=== PATIENT | male | born 1980 | race Caucasian/White ===

== ENCOUNTER 2024-06-20 17:35 | Inpatient (IN) | payer MEDICARE, OTHER ==
[2024-06-20] MEDS ORDERED: VANCOMYCIN 1,000 MG in DEXTROSE 5%-WATER - 250 ML IVPB ONE (18:17)
[2024-06-20 19:18] LABS: VENOUS BASE EXCESS 3.6 mmol/L (-2-2); VENOUS O2 SATURATION 88.6 % (70-80); VENOUS PCO2 52.6 mmHg (38-52); VENOUS PH 7.37 (7.310-7.410)
[2024-06-20 19:20] LABS: BASO % 0.1 % (0-2.0); HEMATOCRIT 27.3 % (35.4-49); HEMOGLOBIN 8.9 GM/dL (11.7-16.9); LYMPH % 1.8 % (8-40); MCH 28.8 pg (25.7-33.7); MCHC 32.7 g/dl (32.0-35.9); MEAN CELL VOLUME 87.9 fl (80-96); MEAN PLT VOLUME 6.4 fl (7.5-11.1); MONO % 4.5 % (3.8-10.2); NEUT % 93.6 % (42.8-82.8); PLATELET COUNT 338 10^3/uL (134-434); RBC 3.11 M/mm3 (4.00-5.60); RDW 15.3 % (11.9-15.9); WHITE BLOOD COUNT 14.6 K/mm3 (4.0-10.0)
[2024-06-20] MEDS ORDERED: ACETAMINOPHEN INJECTION 100 ML ONE (19:25)
[2024-06-20] MEDS ORDERED: PIPERACILLIN/TAZOB 3.375 GM 3.375 GM/50 ML BAG IVPB ONE (19:25)
[2024-06-20 19:28] LABS: INR 1.31 (0.83-1.09); PROTHROMBIN TIME (PATIENT) 14.3 SEC (9.7-13.0)
[2024-06-20 19:31] LABS: ACTIVATED PTT 31.6 SECONDS (25.2-36.5)
[2024-06-20] MEDS: SODIUM CHLORIDE 0.9% 500 ML INFUS.BAG IV ONE ×2 (19:35→22:04)
[2024-06-20] MEDS: PIPERACILLIN/TAZOB 3.375 GM 3.375 GM in DEXTROSE 5%-WATER - 50 ML IVPB ONE (19:35)
[2024-06-20] MEDS: ACETAMINOPHEN 1000 MG/100 ML BAG IVPB ONE (19:35)
[2024-06-20 19:46] LABS: CALCIUM 9.1 mg/dL (8.5-10.1)
[2024-06-20 19:47] LABS: ALBUMIN 2.9 g/dl (3.4-5.0); ANISOCYTOSIS 1+; BLOOD UREA NITROGEN 21.4 mg/dL (7-18); MACROCYTOSIS 0
[2024-06-20 19:50] LABS: CREATININE 0.5 mg/dL (0.55-1.3)
[2024-06-20 19:51] LABS: BILIRUBIN,TOTAL 0.2 mg/dL (0.2-1); TOT PROT 8.5 g/dl (6.4-8.2)
[2024-06-20] MEDS ORDERED: AZITHROMYCIN IVPB 500 MG/250 ML BAG IVPB ONE (19:53)
[2024-06-20] MEDS: AZITHROMYCIN IVPB 500 MG in DEXTROSE 5%-WATER - 250 ML IVPB ONE (20:13)
[2024-06-20] MEDS ORDERED: VANCOMYCIN 1 GM PREMIX (F) 1 GM/200 ML BAG ONE (21:27)
[2024-06-20] MEDS: VANCOMYCIN 1 GM PREMIX (F) 1 GM/200 ML BAG IVPB ONE (21:56)
[2024-06-20 22:10] LABS: EPI CELLS >36 /uL (0-25.1); HYALINE CASTS 13 /uL (0-3.1); PH,URINE 7.5 (5.0-8.0); URINE APPEARANCE TURBID; URINE BACTERIA >9,000 /uL (0-1359); URINE BILIRUBIN NEGATIVE (NEGATIVE); URINE COLOR YELLOW; URINE GLUCOSE (UA) NEGATIVE (NEGATIVE); URINE KETONE NEGATIVE (NEGATIVE); URINE LEUK ESTERASE 1+ (NEGATIVE); URINE NITRITE POSITIVE (NEGATIVE); URINE PROTEIN 2+ (NEGATIVE); URINE RBC 246 /uL (0-23.9); URINE UROBILINOGEN 0.2 mg/dL (0.2-1.0); URINE WBC 21 /uL (0-25.8)
[2024-06-20] MEDS ORDERED: MORPHINE SULFATE 2 MG/ML SYRINGE ONE (23:03)
[2024-06-20] MEDS: morphine SULFATE 4 MG/ML VIAL IVPUSH ONE (23:07)
[2024-06-21] MEDS ORDERED: MORPHINE SULFATE 2 MG/ML SYRINGE ONE (00:21)
[2024-06-21] MEDS: MORPHINE SULFATE 2 MG/ML SYRINGE IVPUSH ONE (00:28)
[2024-06-21] MEDS: LACTATED RINGERS SOLUTION 1,000 ML/1,000 ML INFUS.BAG IV SCH (03:51)
[2024-06-21] MEDS: oxyCODONE HCL 5 MG TABLET GT SCH (04:36)
[2024-06-21] MEDS: levETIRAcetam 500 MG/5 ML INJECTION VIAL IVPB ONE (04:36)
[2024-06-21] MEDS ORDERED: LEVOTHYROXINE 112 MCG, LEVOTHYROXINE 25 MCG NR SCH (07:00)
[2024-06-21] MEDS ORDERED: PIPERACILLIN/TAZOB 4.5 GM 4.5 GM/100 ML BAG IVPB ONE (07:43)
[2024-06-21] MEDS: PIPERACILLIN/TAZOB 4.5 GM 4.5 GM/100 ML BAG IVPB SCH (08:13)
[2024-06-21] MEDS ORDERED: amLODIPine BESYLATE 10 MG TABLET (FP) GT SCH (10:00)
[2024-06-21] MEDS ORDERED: FERROUS SO4 300 MG/5 ML ORAL SOLN UNIT DOSE CUPS GT SCH (10:00)
[2024-06-21] MEDS ORDERED: ASCORBIC ACID 500 MG TABLET (FP) GT SCH (10:00)
[2024-06-21] MEDS ORDERED: FOLIC ACID 1 MG TABLET (FP) GT SCH (10:00)
[2024-06-21] MEDS ORDERED: MAGNESIUM OXIDE 400 MG TABLET (FP) GT SCH (10:00)
[2024-06-21] MEDS ORDERED: AMINO ACIDS/PROTEIN HYDROLYS 30 ML LIQUID.PKT GT SCH (10:00)
[2024-06-21] MEDS ORDERED: ZINC SULFATE 220 MG CAPSULE (FP) GT SCH (10:00)
[2024-06-21] MEDS ORDERED: MELATONIN 1 MG TABLET GT SCH ×2 (10:00→22:00)
[2024-06-21] MEDS ORDERED: ASPIRIN 81 MG CHEWABLE TABLETS ONE (10:28)
[2024-06-21] MEDS ORDERED: levETIRAcetam 500 MG/5 ML INJECTION VIAL IVPB ONE (10:28)
[2024-06-21] MEDS ORDERED: ENOXAPARIN NA (PORCINE) 40 MG/0.4 ML DISP.SYRIN SQ ONE (10:46)
[2024-06-21 10:52] LABS: HEMATOCRIT 21.8 % (35.4-49); HEMOGLOBIN 7.1 GM/dL (11.7-16.9); MCH 29.1 pg (25.7-33.7); MCHC 32.5 g/dl (32.0-35.9); MEAN CELL VOLUME 89.6 fl (80-96); MEAN PLT VOLUME 6.8 fl (7.5-11.1); PLATELET COUNT 301 10^3/uL (134-434); RBC 2.43 M/mm3 (4.00-5.60); RDW 15.4 % (11.9-15.9); WHITE BLOOD COUNT 8.8 K/mm3 (4.0-10.0)
[2024-06-21] MEDS: ASPIRIN 81 MG CHEWABLE TABLETS GT SCH (11:05)
[2024-06-21] MEDS: ENOXAPARIN NA (PORCINE) 40 MG/0.4 ML DISP.SYRIN SQ SCH (11:05)
[2024-06-21] MEDS: levETIRAcetam 500 MG/5 ML INJECTION VIAL IVPB SCH (11:05)
[2024-06-21 11:31] LABS: BLOOD UREA NITROGEN 15.1 mg/dL (7-18); CALCIUM 8.8 mg/dL (8.5-10.1)
[2024-06-21 11:33] LABS: ALBUMIN 2.3 g/dl (3.4-5.0)
[2024-06-21] MEDS ORDERED: ACETAMINOPHEN 1000 MG/100 ML BAG IVPB PRN (11:33)
[2024-06-21 11:34] LABS: CREATININE 0.3 mg/dL (0.55-1.3); PHOSPHOROUS 2.3 mg/dL (2.5-4.9)
[2024-06-21 11:35] LABS: BILIRUBIN,TOTAL 0.3 mg/dL (0.2-1); TOT PROT 6.7 g/dl (6.4-8.2)
[2024-06-21] MEDS: ARTIFICIAL TEARS OPHTHALMIC DROPS OD SCH (12:00)
[2024-06-21] MEDS: AMMONIUM LACTATE 12% LOTION 225 GM BOTTLE TP SCH (12:00)
[2024-06-21] MEDS: IRON SUCROSE INJECTION 200 MG in SODIUM CHLORIDE 100 ML IVPB ONE (13:58)
[2024-06-21] MEDS: ACETAMINOPHEN 325 MG TABLET (FP) PO PRN (16:40)
[2024-06-21] MEDS: methylPREDNISolone NA SUCC 40 MG/1 ML VIAL IVPUSH SCH (18:34)
[2024-06-21] MEDS: INSULIN ASPART SLIDING SCALE (NOVOLOG) 1 VIAL SQ SCH (19:17)
[2024-06-21] MEDS ORDERED: SENNOSIDES 8.8 MG/5 ML SYRUP GT SCH (22:00)
[2024-06-21] MEDS: FAMOTIDINE 20 MG/2.5 ML ORAL LIQUID GT SCH (22:23)
[2024-06-21] MEDS: POLYETHYLENE GLYCOL (HEALTHYLAX) 3350 17 GM PACKET GT SCH (22:24)
[2024-06-21 23:59] LABS: HEMATOCRIT 22.1 % (35.4-49); HEMOGLOBIN 7.4 GM/dL (11.7-16.9); MCH 29.4 pg (25.7-33.7); MCHC 33.5 g/dl (32.0-35.9); MEAN CELL VOLUME 87.8 fl (80-96); MEAN PLT VOLUME 6.6 fl (7.5-11.1); PLATELET COUNT 291 10^3/uL (134-434); RBC 2.52 M/mm3 (4.00-5.60); RDW 15.4 % (11.9-15.9); WHITE BLOOD COUNT 10.7 K/mm3 (4.0-10.0)
[2024-06-22 00:11] LABS: INR 1.46 (0.83-1.09); PROTHROMBIN TIME (PATIENT) 16.1 SEC (9.7-13.0)
[2024-06-22 00:20] LABS: CALCIUM 8.8 mg/dL (8.5-10.1)
[2024-06-22 00:21] LABS: ALBUMIN 2.4 g/dl (3.4-5.0); BLOOD UREA NITROGEN 15.8 mg/dL (7-18)
[2024-06-22 00:23] LABS: CREATININE 0.4 mg/dL (0.55-1.3)
[2024-06-22 00:25] LABS: BILIRUBIN,TOTAL 0.4 mg/dL (0.2-1); TOT PROT 6.9 g/dl (6.4-8.2)
[2024-06-22 07:34] LABS: HEMATOCRIT 23.3 % (35.4-49); HEMOGLOBIN 7.8 GM/dL (11.7-16.9); MCH 29.8 pg (25.7-33.7); MCHC 33.7 g/dl (32.0-35.9); MEAN CELL VOLUME 88.6 fl (80-96); MEAN PLT VOLUME 6.9 fl (7.5-11.1); PLATELET COUNT 322 10^3/uL (134-434); RBC 2.62 M/mm3 (4.00-5.60); RDW 15.5 % (11.9-15.9); WHITE BLOOD COUNT 11.1 K/mm3 (4.0-10.0)
[2024-06-22] MEDS: LEVOTHYROXINE SODIUM 100 MCG 5 ML VIAL IVPUSH SCH (09:02)
[2024-06-22] MEDS: MICONAZOLE NITRATE 28 GM TUBE TP PRN (09:14)
[2024-06-22] MEDS: IRON SUCROSE INJECTION 200 MG in SODIUM CHLORIDE 100 ML IVPB ONE (09:50)
[2024-06-22] MEDS ORDERED: PANTOPRAZOLE SOD 40 MG SUSPENSION PACKET PO SCH (10:00)
[2024-06-22] MEDS: METOPROLOL TARTRATE 5 MG/5 ML VIAL IVPUSH PRN (12:05)
[2024-06-22] MEDS: AMINO ACIDS/PROTEIN HYDROLYS 30 ML LIQUID.PKT PO SCH (17:07)
[2024-06-22] MEDS: morphine CARPU-JECT 4 MG/1 ML DISP.SYRIN IVPUSH ONE (19:26)
[2024-06-22] MEDS: levETIRAcetam 500 MG/5 ML ORAL SOLUTION (UNIT-DOSE CUPS) GT SCH (19:27)
[2024-06-22] MEDS: PIPERACILLIN/TAZOB 4.5 GM 4.5 GM in DEXTROSE 5%-WATER 100 ML IVPB SCH (19:27)
[2024-06-22] MEDS ORDERED: ACETAMINOPHEN 1000 MG/100 ML BAG IVPB PRN (20:41)
[2024-06-22] MEDS: ACETAMINOPHEN 1000 MG/100 ML BAG IVPB SCH (22:32)
[2024-06-22] MEDS: ACETAMINOPHEN 1000 MG/100 ML BAG IVPB PRN (22:36)
[2024-06-23] MEDS: PIPERACILLIN/TAZOB 3.375 GM 50 ML IVPB SCH (02:30)
[2024-06-23] MEDS: LABETALOL HCL 20 MG/4 ML VIAL IVPUSH ONE (03:01)
[2024-06-23 07:14] LABS: HEMATOCRIT 24.1 % (35.4-49); MCH 29.4 pg (25.7-33.7); MCHC 33.1 g/dl (32.0-35.9); MEAN PLT VOLUME 6.8 fl (7.5-11.1); PLATELET COUNT 339 10^3/uL (134-434); RBC 2.71 M/mm3 (4.00-5.60); RDW 15.3 % (11.9-15.9); WHITE BLOOD COUNT 6.1 K/mm3 (4.0-10.0)
[2024-06-23 07:36] LABS: POTASSIUM 3.9 mmol/L (3.5-5.1)
[2024-06-23 07:52] LABS: ALBUMIN 2.3 g/dl (3.4-5.0); BLOOD UREA NITROGEN 21.1 mg/dL (7-18); MAGNESIUM 1.9 mg/dL (1.8-2.4)
[2024-06-23 07:55] LABS: CREATININE 0.4 mg/dL (0.55-1.3)
[2024-06-23 07:56] LABS: BILIRUBIN,TOTAL 0.3 mg/dL (0.2-1)
[2024-06-23 09:34] LABS: ANISOCYTOSIS 0; MACROCYTOSIS 0
[2024-06-23] MEDS: ASCORBIC ACID 500 MG TABLET (FP) PO SCH (10:18)
[2024-06-23] MEDS: ZINC SULFATE 220 MG CAPSULE (FP) PO SCH (10:19)
[2024-06-24] MEDS: levETIRAcetam 500 MG/5 ML INJECTION VIAL IVPB SCH (09:46)
[2024-06-24] MEDS: oxyCODONE HCL 5 MG TABLET GT SCH (09:47)
[2024-06-24] MEDS: amLODIPine BESYLATE 10 MG TABLET (FP) GT SCH (09:47)
[2024-06-25] MEDS: LEVOTHYROXINE 112 MCG, LEVOTHYROXINE 25 MCG PEG SCH (06:13)
[2024-06-25] MEDS ORDERED: LEVOTHYROXINE NA 125 MCG TABLET (FP) GT SCH (07:00)
[2024-06-25 07:33] LABS: HEMATOCRIT 28.1 % (35.4-49); HEMOGLOBIN 9.2 GM/dL (11.7-16.9); MCH 29.1 pg (25.7-33.7); MCHC 32.7 g/dl (32.0-35.9); MEAN PLT VOLUME 6.4 fl (7.5-11.1); PLATELET COUNT 391 10^3/uL (134-434); RBC 3.16 M/mm3 (4.00-5.60); RDW 15.1 % (11.9-15.9); WHITE BLOOD COUNT 6.1 K/mm3 (4.0-10.0)
[2024-06-25 07:34] LABS: POTASSIUM 3.8 mmol/L (3.5-5.1)
[2024-06-25 07:42] LABS: ALBUMIN 2.5 g/dl (3.4-5.0); CALCIUM 8.7 mg/dL (8.5-10.1); MAGNESIUM 1.8 mg/dL (1.8-2.4)
[2024-06-25 07:43] LABS: BLOOD UREA NITROGEN 15.5 mg/dL (7-18)
[2024-06-25 07:45] LABS: PHOSPHOROUS 2.1 mg/dL (2.5-4.9)
[2024-06-25 07:46] LABS: CREATININE 0.4 mg/dL (0.55-1.3)
[2024-06-25 07:47] LABS: BILIRUBIN,TOTAL 0.2 mg/dL (0.2-1); TOT PROT 6.8 g/dl (6.4-8.2)
[2024-06-25] MEDS: NAPH,MB-DB/K PH,MBDB POWDER PACKET PO ONE (11:08)
[2024-06-25] MEDS ORDERED: MICONAZOLE NITRATE 28 GM TUBE TP PRN (12:28)
[2024-06-25] MEDS ORDERED: METOPROLOL TARTRATE 5 MG/5 ML VIAL IVPUSH PRN (12:28)
[2024-06-25 13:49] VITALS: BMI 19.8
[2024-06-25] MEDS ORDERED: METOPROLOL TARTRATE 5 MG/5 ML VIAL IVPB PRN (16:53)
[2024-06-25] MEDS: INSULIN ASPART SLIDING SCALE (NOVOLOG) 1 VIAL SQ SCH (16:56)
[2024-06-25] MEDS: AMINO ACIDS/PROTEIN HYDROLYS 30 ML LIQUID.PKT PO SCH (17:00)
[2024-06-25] MEDS: PIPERACILLIN/TAZOB 3.375 GM 50 ML IVPB SCH (17:00)
[2024-06-25] MEDS: oxyCODONE HCL 5 MG TABLET GT SCH (21:45)
[2024-06-25] MEDS: POLYETHYLENE GLYCOL (HEALTHYLAX) 3350 17 GM PACKET GT SCH (21:46)
[2024-06-25] MEDS: FAMOTIDINE 20 MG/2.5 ML ORAL LIQUID GT SCH (21:46)
[2024-06-25] MEDS: ARTIFICIAL TEARS OPHTHALMIC DROPS OD SCH (21:46)
[2024-06-25] MEDS: levETIRAcetam 500 MG/5 ML INJECTION VIAL IVPB SCH (21:46)
[2024-06-25] MEDS: AMMONIUM LACTATE 12% LOTION 225 GM BOTTLE TP SCH (21:46)
[2024-06-26] MEDS: LEVOTHYROXINE 112 MCG, LEVOTHYROXINE 25 MCG PEG SCH (06:13)
[2024-06-26 08:43] LABS: EOS % 0.4 % (0-4.5); HEMATOCRIT 23.6 % (35.4-49); HEMOGLOBIN 7.9 GM/dL (11.7-16.9); LYMPH % 13.5 % (8-40); MCH 29.5 pg (25.7-33.7); MCHC 33.4 g/dl (32.0-35.9); MEAN CELL VOLUME 88.4 fl (80-96); MEAN PLT VOLUME 6.4 fl (7.5-11.1); MONO % 8.6 % (3.8-10.2); NEUT % 77.5 % (42.8-82.8); PLATELET COUNT 398 10^3/uL (134-434); RBC 2.66 M/mm3 (4.00-5.60); RDW 15.9 % (11.9-15.9); WHITE BLOOD COUNT 7.2 K/mm3 (4.0-10.0)
[2024-06-26 09:06] LABS: POTASSIUM 3.7 mmol/L (3.5-5.1)
[2024-06-26 09:14] LABS: ALBUMIN 2.2 g/dl (3.4-5.0); BLOOD UREA NITROGEN 13.2 mg/dL (7-18); MAGNESIUM 1.9 mg/dL (1.8-2.4)
[2024-06-26 09:16] LABS: TOT PROT 5.8 g/dl (6.4-8.2)
[2024-06-26 09:17] LABS: CREATININE 0.4 mg/dL (0.55-1.3); PHOSPHOROUS 2.1 mg/dL (2.5-4.9)
[2024-06-26 09:19] LABS: BILIRUBIN,TOTAL 0.3 mg/dL (0.2-1)
[2024-06-26] MEDS: ASCORBIC ACID 500 MG TABLET (FP) PO SCH (09:38)
[2024-06-26] MEDS: ZINC SULFATE 220 MG CAPSULE (FP) PO SCH (09:38)
[2024-06-26] MEDS: ENOXAPARIN NA (PORCINE) 40 MG/0.4 ML DISP.SYRIN SQ SCH (09:38)
[2024-06-26] MEDS: amLODIPine BESYLATE 10 MG TABLET (FP) GT SCH (09:38)
[2024-06-26] MEDS: ASPIRIN 81 MG CHEWABLE TABLETS GT SCH (09:38)
[2024-06-27 09:08] LABS: BASO % 0.1 % (0-2.0); EOS % 1.2 % (0-4.5); HEMATOCRIT 23.2 % (35.4-49); HEMOGLOBIN 7.7 GM/dL (11.7-16.9); LYMPH % 10.6 % (8-40); MCH 29.8 pg (25.7-33.7); MCHC 33.3 g/dl (32.0-35.9); MEAN CELL VOLUME 89.3 fl (80-96); MEAN PLT VOLUME 6.5 fl (7.5-11.1); MONO % 6.9 % (3.8-10.2); NEUT % 81.2 % (42.8-82.8); PLATELET COUNT 372 10^3/uL (134-434); RDW 15.6 % (11.9-15.9); WHITE BLOOD COUNT 8.2 K/mm3 (4.0-10.0)
[2024-06-27 09:29] LABS: POTASSIUM 3.9 mmol/L (3.5-5.1)
[2024-06-27 09:33] LABS: CALCIUM 8.2 mg/dL (8.5-10.1)
[2024-06-27 09:34] LABS: ALBUMIN 2.3 g/dl (3.4-5.0); BLOOD UREA NITROGEN 11.8 mg/dL (7-18)
[2024-06-27 09:35] LABS: CREATININE 0.4 mg/dL (0.55-1.3); PHOSPHOROUS 2.2 mg/dL (2.5-4.9)
[2024-06-27 09:37] LABS: BILIRUBIN,TOTAL 0.2 mg/dL (0.2-1); TOT PROT 6.1 g/dl (6.4-8.2)
[2024-06-27] MEDS: NAPH,MB-DB/K PH,MBDB POWDER PACKET GT ONE (12:32)
[2024-06-27] MEDS: SODIUM CHLORIDE 1,000 ML IV STA (13:03)
[2024-06-27] MEDS: SODIUM CHLORIDE 1,000 ML IV SCH (17:57)
[2024-06-28 09:23] LABS: HEMATOCRIT 21.8 % (35.4-49); HEMOGLOBIN 7.2 GM/dL (11.7-16.9); MCHC 33.2 g/dl (32.0-35.9); MEAN CELL VOLUME 90.3 fl (80-96); MEAN PLT VOLUME 6.4 fl (7.5-11.1); PLATELET COUNT 330 10^3/uL (134-434); RBC 2.41 M/mm3 (4.00-5.60); WHITE BLOOD COUNT 6.7 K/mm3 (4.0-10.0)
[2024-06-28 09:43] LABS: POTASSIUM 3.8 mmol/L (3.5-5.1)
[2024-06-28 09:47] LABS: BLOOD UREA NITROGEN 11.6 mg/dL (7-18)
[2024-06-28 09:49] LABS: CALCIUM 8.2 mg/dL (8.5-10.1)
[2024-06-28 09:53] LABS: CREATININE 0.4 mg/dL (0.55-1.3); PHOSPHOROUS 2.5 mg/dL (2.5-4.9)
[2024-06-29 08:25] LABS: BASO % 0.2 % (0-2.0); EOS % 1.8 % (0-4.5); HEMATOCRIT 24.9 % (35.4-49); HEMOGLOBIN 8.3 GM/dL (11.7-16.9); LYMPH % 12.8 % (8-40); MCH 29.7 pg (25.7-33.7); MCHC 33.2 g/dl (32.0-35.9); MEAN CELL VOLUME 89.7 fl (80-96); MEAN PLT VOLUME 6.4 fl (7.5-11.1); MONO % 9.9 % (3.8-10.2); NEUT % 75.3 % (42.8-82.8); PLATELET COUNT 327 10^3/uL (134-434); RBC 2.78 M/mm3 (4.00-5.60); RDW 16.3 % (11.9-15.9); WHITE BLOOD COUNT 6.8 K/mm3 (4.0-10.0)
[2024-06-29 08:48] LABS: POTASSIUM 3.9 mmol/L (3.5-5.1)
[2024-06-29 08:53] LABS: ALBUMIN 2.7 g/dl (3.4-5.0); BLOOD UREA NITROGEN 9.9 mg/dL (7-18)
[2024-06-29 08:55] LABS: CREATININE 0.4 mg/dL (0.55-1.3)
[2024-06-29 08:57] LABS: BILIRUBIN,TOTAL 0.3 mg/dL (0.2-1); TOT PROT 6.9 g/dl (6.4-8.2)
[2024-06-29] MEDS: DEXTROSE 5%-NORMAL SALINE 1,000 ML IV SCH (12:40)
[2024-06-29] MEDS: ACETAMINOPHEN 1000 MG/100 ML BAG IVPB PRN (14:57)
[2024-06-30] MEDS: MORPHINE SULFATE/0.9% NACL/PF 100 MG/100 ML BAG IVPB SCH ×2 (11:19→22:07)
[2024-06-30] MEDS ORDERED: MORPHINE SULFATE/0.9% NACL/PF 100 MG/100 ML BAG IVPB SCH (20:15)
[2024-07-01 03:54] VITALS: TEMP 97.9
[2024-07-01 09:54] VITALS: BP 103/66; PULSE 108; RESP 8
[2024-07-01] MEDS: SODIUM CHLORIDE 1,000 ML IV SCH (10:55)
[2024-07-01] MEDS ORDERED: TETRAHYDROZOLINE HCL EYE DROPS OU PRN (15:30)
== END 2024-07-02 03:19 | disposition expired | DRG 870 ==
LOC: JER 17:35 → JERBED 21:29 → JICU 06-21 17:11 → J5S 06-25 12:27
PROVIDERS: ADMIT Internal Medicine
PROC: 5A1955Z Respiratory Ventilation, Greater than 96 Consecutive Hours (ICD-10-PCS; principal; 2024-06-20)
DX: A41.89 Other specified sepsis (principal); L89.154 Pressure ulcer of sacral region, stage 4; J96.21 Acute and chronic respiratory failure with hypoxia; N39.0 Urinary tract infection, site not specified; G93.1 Anoxic brain damage, not elsewhere classified; I48.92 Unspecified atrial flutter; J98.11 Atelectasis; R64 Cachexia; T17.590A Other foreign object in bronchus causing asphyxiation, initial encounter; J95.851 Ventilator associated pneumonia; K31.89 Other diseases of stomach and duodenum; J38.02 Paralysis of vocal cords and larynx, bilateral; R00.0 Tachycardia, unspecified; E03.9 Hypothyroidism, unspecified; D50.9 Iron deficiency anemia, unspecified; I46.9 Cardiac arrest, cause unspecified; I10 Essential (primary) hypertension; B96.1 Klebsiella pneumoniae [K. pneumoniae] as the cause of diseases classified elsewhere; D63.8 Anemia in other chronic diseases classified elsewhere; Z93.1 Gastrostomy status; Z93.0 Tracheostomy status; R25.2 Cramp and spasm; Z85.22 Personal history of malignant neoplasm of nasal cavities, middle ear, and accessory sinuses; Z68.27 Body mass index [BMI] 27.0-27.9, adult; Z95.2 Presence of prosthetic heart valve
CPT/HCPCS: 0241U-QW; 36415; 71045-TC-FY; 71250-TC; 74018-TC-FY; 74177-TC; 80048; 80053; 81003; 82728; 82803; 82962; 83540; 83550; 83605; 83735; 84100; 84484; 85025; 85027; 85610; 85730; 86850; 86900; 86901; 87040; 87081; 87086; 87184; 87186; 87481; 93005; 93010; 94002; 99285-25; E0186; J0131; J1756